=== PATIENT | female | born 1970 | race Caucasian/White ===

== ENCOUNTER 2022-08-14 16:27 | Emergency (ER) | payer OTHER ==
[~2022-08-14] VITALS: Ht 180.3 cm; Wt 68.0 kg
[2022-08-14 16:38] VITALS: BP_SYST 127
--- NOTE | 2022-08-14 16:42 | NUR ---
Patient triaged and placed in RM 6. VSS and patient appears in no acute distress at this time. Accompanied by SON and MD notified of need for MSE.
--- NOTE | 2022-08-14 16:59 | NUR ---
REPORT GIVEN TO JOJO EVANGELISTA.
--- NOTE | 2022-08-14 17:05 | NUR ---
PT RECEIVED, CARE ASSUMED. PT PRESENTS SELF WITH LEFT HIP PAIN S/P MECH FALL. PT WAS PREVIOUSLY DX WITH FX. DR MEJIAS AT BEDSIDE
[2022-08-14] MEDS ORDERED: MORPHINE 4 MG INJ. 4 MG/ML VIAL IM ONE (17:45)
--- NOTE | 2022-08-14 19:03 | NUR ---
Report of bed waters placement received from PAMELA Trimble at 1850. Patient removed from bedpan without difficulty at 1900. Urine color is light yellow without odor. Patient tolerated well. Fresh ryanne placed under patient.
[2022-08-14] MEDS ORDERED: HYDR-3917 PO (19:10)
[2022-08-14 19:18] VITALS: BP_SYST 129
--- NOTE | 2022-08-14 19:20 | NUR ---
Patient given written and verbal discharge instructions and verbalizes understanding. ER MD discussed with patient the results and treatment provided. Patient in stable condition. ID arm band removed. IV catheter removed intact and dressing Patient educated on pain management and to follow up with PMD. Pain Scale . Opportunity for questions provided and answered. Medication side effect fact sheet provided.
== END 2022-08-14 19:18 | disposition home or self-care (01) ==
LOC: SED 16:27 → EDBD 16:27 → SED 19:18
DX: S32.592A Other specified fracture of left pubis, initial encounter for closed fracture (principal); Z79.899 Other long term (current) drug therapy; W01.0XXA Fall on same level from slipping, tripping and stumbling without subsequent striking against object, initial encounter; Y93.89 Activity, other specified; Y92.89 Other specified places as the place of occurrence of the external cause; Y99.8 Other external cause status
CPT/HCPCS: 72192-TC; 73502; 76376; 99284